=== PATIENT | female | born 1990 | race Caucasian/White ===

== ENCOUNTER 2017-07-05 08:52 | Emergency (ER) | payer BC, OTHER ==
[2017-07-05 09:26] LABS: #Eosinphils 0.2 thou/uL (0.0-0.7); #Lymphocytes 2.2 thou/uL (1.20-3.40); #Monocytes 0.7 thou/uL (0.11-0.59); #Neutrophils 6.1 thou/uL (1.40-6.50); %Basophils 0.3 % (0.0-1.0); %Eosinophils 2.5 % (0.0-10.0); %Lymphocytes 23.7 % (21.0-51.0); %Monocytes 7.4 % (0.0-10.0); Hemoglobin 14.4 g/dL (12.0-16.0); Mean Corpuscular HGB CONC 33.9 g/dL (32.0-36.0); Mean Corpuscular Hemoglobin 33.4 pg (27.0-31.0); Mean Corpuscular Volume 98.4 fl (81.0-99.0); Mean Platelet Volume 7.5 fL (7.4-10.4); Platelet Count 253 thou/uL (130-400); RBC Distribution Width 11.4 % (11.5-14.5); White Blood Cell (WBC) Count 9.3 thou/uL (4.8-10.8)
[2017-07-05 09:30] LABS: BHCG - Serum POSITIVE (NEGATIVE); Pregs Control Background? CLEAR/WHITE (CLR/WHITE); Pregs Control Bar Appear? YES (CONTROL BAR)
[2017-07-05 09:47] LABS: ALT (SGPT) 12 U/L (8-55); AST (SGOT) 17 U/L (5-34); Albumin 3.7 g/dL (3.5-5.0); Alkaline Phosphatase 38 U/L (40-150); Anion Gap 14 mmol/L (10-20); BUN (Urea Nitrogen) 8 mg/dL (7.0-18.7); Bilirubin, Total 0.7 mg/dL (0.2-1.2); CK (CPK) 42 U/L (29-168); Calc. Creatinine Clearance 0 mL/min (70-130); Calcium 9.4 mg/dL (7.8-10.44); Carbon Dioxide 21 mmol/L (22-29); Chloride 104 mmol/L (98-107); Estimated GFR-MDRD Greater than 90; Glucose 86 mg/dL (70-105); Potassium 3.6 mmol/L (3.5-5.1); Protein, Total 6.7 g/dL (6.0-8.3); Sodium 135 mmol/L (136-145)
[2017-07-05 09:52] LABS: CKMB 0.6 ng/mL (0-6.6); Troponin I Less than 0.010 ng/mL (< 0.028)
--- NOTE | 2017-07-05 10:16 | CT ---
CT OF HEAD NONCONTRAST: Indication: Injury. Loss of consciousness. FINDINGS: There is no evidence of ventriculomegaly, mass effect, midline shift or intracranial hemorrhage. Ther e is mild mucosal thickening of the paranasal sinuses. IMPRESSION: No intracranial hemorrhage or mass effect. POS: [facility]
--- NOTE | 2017-07-06 15:38 | EKG ---
Test Reason : SYNCOPE Blood Pressure : / mmHG Vent. Rate : 077 BPM Atrial Rate : 077 BPM P-R Int : 106 ms QRS Dur : 082 ms QT Int : 380 ms P-R-T Axes : 032 032 026 degrees QTc Int : 430 ms Sinus rhythm with short OR Otherwise normal ECG Confirmed by BECK NAGY, FOREIGN ([id number]), editor index SIMONA LEDBETTER ([id number]) on 07/06/2017 3:38:08 PM Referred By: Confirmed By:FOREIGN SOLARES MD
== END 2017-07-05 10:48 | disposition home or self-care (01) ==
LOC: ERS 08:52
DX: O99.89 Other specified diseases and conditions complicating pregnancy, childbirth and the puerperium (principal); R55 Syncope and collapse; Z3A.14 14 weeks gestation of pregnancy
CPT/HCPCS: 36415; 36416; 70450; 80053; 82550; 82553; 84484; 84703; 85025; 93005